=== PATIENT | female | born 1930 | race Caucasian/White ===

== ENCOUNTER → 2016-04-19 | Outpatient (CLI) | payer OTHER ==
[~2016-04-19] MED LIST: ASPEC81 PO; CLCC1250 PO; CLR10 PO; EFFSR75 PO; GLCSR500 PO; HYDC25 PO; LISI-461 PO; MULT-506 PO; PRLSR20 PO; SIMV40TA2 PO
--- NOTE | 2016-04-19 16:56 | MAMMOGRAPHY REPORT ---
BILATERAL DIGITAL SCREENING MAMMOGRAM TOMOSYNTHESIS WITH CAD: 04/19/2016 CLINICAL HISTORY: Asymptomatic. Personal history of breast cancer. TECHNIQUE: Breast tomosynthesis in addition to standard 2D mammography was performed. Current study was also evaluated with a Computer Aided Detection (CAD) system. COMPARISON: Comparison is made to exams dated: 04/15/2015 mammogram, 04/08/2013 mammogram, 04/14/2014 m ammogram, 05/26/2013 specimen, 04/23/2013 stereotactic biopsy, and 04/03/2012 mammogram - [facility]. BREAST COMPOSITION: There are scattered areas of fibroglandular density in both breasts. FINDINGS: There is expected architectural distortion and density in the upper outer far posterior ri ght breast, with a single surgical clip visualized, in the area of prior lumpectomy. There are mode rate vascular calcifications and a few stable benign-appearing microcalcifications in the breasts. No new suspicious mass, architectural distortion or cluster of suspicious microcalcifications is see n. IMPRESSION: ACR BI-RADS CATEGORY 1: NEGATIVE There is no mammographic evidence of malignancy. A 1 year screening mammogram is recommended. The p atient will receive written notification of the results. Approximately 10% of breast cancers are not detected with mammography. A negative mammographic repor t should not delay biopsy if a clinically suggestive mass is present. Viki Doe M.D. ay/:04/19/2016 15:06:36 Tank Builder And Erector: Lavinia ADAM(Rita)(M), [facility] letter sent: Normal 1/2 BI-RADS Code: ACR BI-RADS Category 1: Negative
== END | disposition home or self-care (01) ==
LOC: C.MAMM 14:17
PROVIDERS: ATTEND Internal Medicine
DX: Z12.31 Encounter for screening mammogram for malignant neoplasm of breast (principal); Z85.3 Personal history of malignant neoplasm of breast

== ENCOUNTER → 2016-08-18 | Outpatient (CLI) | payer OTHER ==
[~2016-08-18] MED LIST changes: +GLIP2.5T11 PO; +PLV75 PO
[2016-08-18 13:55] LABS: ESTIMATED AVERAGE GLUCOSE 166 mg/dl; HA1C FLAG Normal (Normal)
[2016-08-18 14:01] LABS: BLOOD UREA NITROGEN 23 mg/dl (7-18); BUN/CREATININE RATIO 31.5 (10-20); CARBON DIOXIDE 27 mmol/L (21-32); CHLORIDE 104 mmol/L (98-107); CHOLESTEROL 135 mg/dl (0-200); CREATININE 0.72 mg/dl (0.60-1.20); GLUCOSE 133 mg/dl (70-99); POTASSIUM 4.1 mmol/L (3.5-5.1); SODIUM 141 mmol/L (136-145)
[2016-08-18 14:06] LABS: CHOLESTEROL/HDL RATIO 2.4; HDL CHOLESTEROL 56 mg/dl; TRIGLYCERIDES 76 mg/dl (0-150); VERY LOW DENSITY LIPOPROT CALC 15 mg/dl
== END | disposition home or self-care (01) ==
LOC: C.LABSPEC 12:20
PROVIDERS: ATTEND Internal Medicine
DX: E11.9 Type 2 diabetes mellitus without complications (principal); I10 Essential (primary) hypertension; I25.10 Atherosclerotic heart disease of native coronary artery without angina pectoris

== ENCOUNTER → 2016-08-21 | Outpatient (CLI) | payer OTHER | END | disposition home or self-care (01) | LOC: C.LABSPEC 14:53 | PROVIDERS: ATTEND Internal Medicine | DX: E11.9 Type 2 diabetes mellitus without complications (principal) ==

== ENCOUNTER → 2016-09-18 | Outpatient (CLI) | payer OTHER | END | disposition home or self-care (01) | LOC: C.LABSPEC 15:04 | PROVIDERS: ATTEND Internal Medicine | DX: N39.0 Urinary tract infection, site not specified (principal) ==

== ENCOUNTER → 2016-12-21 | Outpatient (CLI) | payer OTHER ==
[~2016-12-21] MED LIST changes: -GLIP2.5T11 PO; -PLV75 PO
[2016-12-21 13:31] LABS: ESTIMATED AVERAGE GLUCOSE 163 mg/dl; HA1C FLAG Normal (Normal)
[2016-12-21 13:41] LABS: ALT/SGPT 50 U/L (12-78); AST/SGOT 37 U/L (15-37); BLOOD UREA NITROGEN 15 mg/dl (7-18); BUN/CREATININE RATIO 19.9 (10-20); CALCIUM 8.7 mg/dl (8.5-10.1); CARBON DIOXIDE 30 mmol/L (21-32); CHLORIDE 105 mmol/L (98-107); CREATININE 0.76 mg/dl (0.60-1.20); GLUCOSE 122 mg/dl (70-99); POTASSIUM 3.8 mmol/L (3.5-5.1); SODIUM 140 mmol/L (136-145)
[2016-12-21 13:43] LABS: ALB/GLOB RATIO 1.1 (0.9-2); ALKALINE PHOSPHATASE 66 U/L (45-117); CHOLESTEROL 140 mg/dl (0-200); CHOLESTEROL/HDL RATIO 2.8; HDL CHOLESTEROL 50 mg/dl; TRIGLYCERIDES 103 mg/dl (0-150); VERY LOW DENSITY LIPOPROT CALC 21 mg/dl
== END | disposition home or self-care (01) ==
LOC: C.LABSPEC 12:29
PROVIDERS: ATTEND Internal Medicine
DX: I10 Essential (primary) hypertension (principal); E11.65 Type 2 diabetes mellitus with hyperglycemia; E78.5 Hyperlipidemia, unspecified

== ENCOUNTER → 2017-02-27 | Outpatient (CLI) | payer OTHER ==
[2016-02-22 14:12] VITALS: BP 111/73; PULSE 90
[~2017-02-27] MED LIST changes: +GLIP2.5T11 PO; +PLV75 PO
[2017-02-27 14:02] VITALS: BP 129/76; PULSE 100; TEMP 36.7; O2SAT 95
--- NOTE | 2017-02-27 16:41 | Radiation Oncology Follow-Up ---
Radiation Oncology Follow-Up Date of Visit Feb 27, 2017. Reason For Visit Annual follow-up Radiation Completion Date 07/15/13 APB Diagnosis (1) Ductal carcinoma in situ of right breast Status: Resolved Onset Date: 05/26/2013 Stage: 0 Permanent Comment: Abnormal right breast mammogram Status post stereotactic biopsy positive for high-grade ductal carcinoma in situ Status post partial mastectomy, stage pTis status post completion of radiation therapy utilizing accelerated partial breast treatment completed 07/15/2013 received 3850 cGy Patient declined tamoxifen Last Edited By: Mariana Cervantes on Feb 22, 2016 16:06 Interim History She has noted no changes to her breasts are of this past year. She has noticed no masses or tenderness no change of the axilla. She's had no swelling of her arm. She is up-to-date on mammography. She had a mammogram 04/19/2016. There is no mammographic evidence of malignancy. A one-year screening mammogram was recommended. This was given a BI-RADS Category 1. 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 She had right arm and leg weakness. She underwent physical therapy for 2 months and has regained the strength in her upper and lower extremity. Allergies Coded Allergies: Sulfa Antibiotics (Unverified Allergy, Severe, SHORTNESS OF BREATH, ) " MAKES ME HYPER " Glipizide (Verified Allergy, Intermediate, DELIRIUM, 02/22/16) "had blood sugar spikes and was off balance " Home Medications Scheduled Aspirin Enteric Coated (Ecotrin Or Generic *), 81 MG PO DAILY Calcium Carbonate (Os-Paolo 500 *), 1,500 MG PO DAILY Clopidogrel Bisulfate (Clopidogrel), 1 TAB PO DAILY Glipizide (Glipizide Er), 1 TAB PO DAILY Hydrochlorothiazide (Hctz *), 12.5 MG PO QAM Lisinopril (Zestril), 10 MG PO QAM Loratadine (Claritin), 10 MG PO DAILY Metformin Hcl Ext Rel (Glucophage Ext Rel *), 500 MG PO BIDM Multivitamin (Multivitamin), 1 TABLET PO DAILY Omeprazole (Prilosec), 20 MG PO DAILY Simvastatin (Zocor), 40 MG PO QPM Venlafaxine Ext Rel (Effexor Extended Rel *), 75 MG PO DAILY Review of Systems Gastrointestinal: Symptoms: WNL GI Comments: has IBS Oral: Symptoms: No Problems Respiratory: Symptoms: WNL Urinary: Symptoms: WNL Comments: nocturia times 1 Skin: Symptoms: No Problems Breast: Right Upper Arm Measurement: 29.0 Right Mid Arm Measurement: 21.5 Right Wrist Measurement: 15.5 Left Upper Arm Measurement: 28.5 Left Mid Arm Measurement: 21.5 Left Wrist Measurement: 15.5 Arm Dominence: Right Patient Cosmetic Evaluation: Excellent Staff Cosmetic Evalaluation: Excellent Physical Exam Vital Signs Date Time Temp Pulse Resp B/P (MAP) Pulse Ox O2 Delivery O2 Flow Rate FiO2 02/27/17 14:02 36.7 100 16 129/76 95 Fatigue: None General Appearance: no apparent distress, + pertinent finding (mild facial droop with lid lag.) Eyes: normal inspection, EOMI ENT: normal ENT inspection, hearing grossly normal Neck: no adenopathy, thyroid normal Respiratory/Chest: lungs clear, no respiratory distress, no accessory muscle use Breast: Breast examination reveals well-healed incisions of the right breast. There are no masses or tenderness and no axillary adenopathy. There are fibrous changes in the upper inner quadrant of the breast. There are no distinct masses. There are no skin retractions or nipple changes. Using the Mckenzie score cosmesis she has a excellent outcome. The left breast showed no masses or tenderness and no axillary adenopathy. Cardiovascular: regular rate, rhythm, no gallop, no murmur Extremities: no pedal edema Neurologic/Psychiatric: alert, normal mood/affect Skin: warm/dry Pain Management Side: Bilateral Patient Preferred Pain Scale: 0 - 10 Pain Rating (0-10): 0 Laboratory Studies Test 12/21/16 08:45 Sodium Level 140 mmol/L (136-145) Potassium Level 3.8 mmol/L (3.5-5.1) Chloride Level 105 mmol/L (98-107) Carbon Dioxide Level 30 mmol/L (21-32) Anion Gap 5.0 mmol/L (3-11) Blood Urea Nitrogen 15 mg/dl (7-18) Creatinine 0.76 mg/dl (0.60-1.20) Estimated GFR () 82.3 Estimated GFR (Non- 71.0 BUN/Creatinine Ratio 19.9 (10-20) Random Glucose 122 mg/dl (70-99) Estimated Average Glucose 163 mg/dl Hemoglobin A1c 7.3 % (4.5-5.6) Calcium Level 8.7 mg/dl (8.5-10.1) Total Bilirubin 0.4 mg/dl (0.2-1) Aspartate Amino Transferase (AST) 37 U/L (15-37) Alanine Aminotransferase (ALT) 50 U/L (12-78) Alkaline Phosphatase 66 U/L (45-117) Total Protein 7.0 gm/dl (6.4-8.2) Albumin 3.7 gm/dl (3.4-5.0) Globulin 3.3 gm/dl (2.5-4.0) Albumin/Globulin Ratio 1.1 (0.9-2) Triglycerides Level 103 mg/dl (0-150) Cholesterol Level 140 mg/dl (0-200) HDL Cholesterol 50 mg/dl LDL Cholesterol Direct 81 mg/dl LDL Cholesterol, Calculated mg/dl VLDL Cholesterol, Calculated 21 mg/dl Cholesterol/HDL Ratio 2.8 Additional Studies Patient: HODA NGUYEN [facility] Rec: [id number] Address1: [address] Address2: [facility] ID: [id number] Date: 1930 Sex: F Ref Phy: Att Phy: Jacob Soler M.D. Raquel Phy: Jacob Soler M.D. Inter Phy: Viki Doe MD [facility] Zip: [place] [address] SC: [id number] Report #: [id number] Bacon De Rinder: JOSE Diagnosis: ASYMPTOMATICS Service Date: 04/19/16 MNE: [id number] Ordering Dr: Jacob Soler M.D. CC: Jacob Soler M.D. CONF: DICTATED BY: Viki Doe MD MAMMOGRAPHY REPORT BILATERAL DIGITAL SCREENING MAMMOGRAM TOMOSYNTHESIS WITH CAD: 04/19/2016 CLINICAL HISTORY: Asymptomatic. Personal history of breast cancer. TECHNIQUE: Breast tomosynthesis in addition to standard 2D mammography was performed. Current study was also evaluated with a Computer Aided Detection (CAD ) system. COMPARISON: Comparison is made to exams dated: 04/15/2015 mammogram, 04/08/2013 mammogram, 04/14/2014 mammogram, 05/26/2013 specimen, 04/23/2013 stereotactic biopsy, and 04/03/2012 mammogram - [facility]. BREAST COMPOSITION: There are scattered areas of fibroglandular density in both breasts. FINDINGS: There is expected architectural distortion and density in the upper outer far posterior right breast, with a single surgical clip visualized, in the area of prior lumpectomy. There are moderate vascular calcifications and a few stable benign-appearing microcalcifications in the breasts. No new suspicious mass, architectural distortion or cluster of suspicious microcalcifications is seen. IMPRESSION: ACR BI-RADS CATEGORY 1: NEGATIVE There is no mammographic evidence of malignancy. A 1 year screening mammogram is recommended. The patient will receive written notification of the results. Approximately 10% of breast cancers are not detected with mammography. A negative mammographic report should not delay biopsy if a clinically suggestive mass is present. Viki Doe M.D. ay/:04/19/2016 15:06:36 Recovery Analyst: Lavinia ADAM(Rita)(Jen), [facility] letter sent: Normal 04/03 BI-RADS Code: ACR BI-RADS Category 1: Negative Dictated by: Viki Doe MD Signed by: Viki Doe MD Assessment & Plan Plan: Continue scheduled mammography. Continue regular follow-up with her primary care physician and Dr. Funez. We discussed the area of fibrous tissue. This is a result of the accelerated partial breast treatment. She has no concerns and is pleased with her outcome. We asked her to return to our office in 1 year. She will call if she has any questions or concerns in the interim. Total Time In Follow-Up I spent 20 minutes speaking to the patient and performing examination. I spent 15 minutes reviewing information in completing this note. Copy To Jacob Soler M.D.; Mj Funez M.D.
== END | disposition home or self-care (01) ==
LOC: C.ONC 13:54
PROVIDERS: ATTEND Physician Assistant Medical
DX: Z08 Encounter for follow-up examination after completed treatment for malignant neoplasm (principal); Z92.3 Personal history of irradiation; Z85.3 Personal history of malignant neoplasm of breast

== ENCOUNTER → 2017-04-26 | Outpatient (CLI) | payer OTHER ==
--- NOTE | 2017-04-27 13:25 | MAMMOGRAPHY REPORT ---
BILATERAL DIGITAL SCREENING MAMMOGRAM TOMOSYNTHESIS WITH CAD: 04/26/2017 CLINICAL HISTORY: Asymptomatic. Personal history of breast cancer. TECHNIQUE: Breast tomosynthesis in addition to standard 2D mammography was performed. Current study was also evaluated with a Computer Aided Detection (CAD) system. COMPARISON: Comparison is made to exams dated: 04/19/2016 mammogram, 04/15/2015 mammogram, 10/12/2014 m ammogram, 04/14/2014 mammogram, 10/01/2013 mammogram, and 05/26/2013 specimen - [facility] ter. BREAST COMPOSITION: There are scattered areas of fibroglandular density in both breasts. FINDINGS: No suspicious masses, calcifications, or areas of architectural distortion are noted in ei ther breast. There has been no significant interval change compared to prior exams. There are stable postoperative changes in the right breast from prior lumpectomy. Scattered bilateral benign-appeari ng calcifications are again noted. A linear scar marker denotes a scar on the right superior breast. IMPRESSION: ACR BI-RADS CATEGORY 2: BENIGN There is no mammographic evidence of malignancy. A 1 year screening mammogram is recommended. The pa tient will receive written notification of the results. Approximately 10% of breast cancers are not detected with mammography. A negative mammographic report should not delay biopsy if a clinically suggestive mass is present. Lianet Holder M.D. /:04/26/2017 15:32:20 Huc: Ambreen DORSEY)(Jen), [facility] letter sent: Normal 1/2 BI-RADS Code: ACR BI-RADS Category 2: Benign
== END | disposition home or self-care (01) ==
LOC: C.MAMM 13:52
PROVIDERS: ATTEND Internal Medicine
DX: Z12.31 Encounter for screening mammogram for malignant neoplasm of breast (principal); Z85.3 Personal history of malignant neoplasm of breast

== ENCOUNTER → 2017-05-14 | Outpatient (CLI) | payer OTHER | END | disposition home or self-care (01) | LOC: C.LABSPEC 18:10 | PROVIDERS: ATTEND Internal Medicine | DX: N39.0 Urinary tract infection, site not specified (principal) ==

== ENCOUNTER → 2017-05-16 | Outpatient (CLI) | payer OTHER ==
[2017-05-16 13:08] LABS: HEMOGLOBIN A1C 7.4 % (4.5-5.6)
[2017-05-16 13:25] LABS: BLOOD UREA NITROGEN 21 mg/dl (7-18); CARBON DIOXIDE 28 mmol/L (21-32); CHOLESTEROL 136 mg/dl (0-200); CREATININE 0.91 mg/dl (0.60-1.20); GLUCOSE 148 mg/dl (70-99); POTASSIUM 3.8 mmol/L (3.5-5.1); SODIUM 136 mmol/L (136-145)
[2017-05-16 13:29] LABS: LDL CHOLESTEROL (DIRECT) 75 mg/dl
== END ==
LOC: C.LABSPEC 12:24
PROVIDERS: ATTEND Internal Medicine
DX: E11.65 Type 2 diabetes mellitus with hyperglycemia (principal); I10 Essential (primary) hypertension; E78.5 Hyperlipidemia, unspecified

== ENCOUNTER → 2017-06-20 | Outpatient (CLI) | payer OTHER ==
--- NOTE | 2017-06-20 12:34 | DIAGNOSTIC IMAGING REPORT ---
L WRIST MIN 3 VIEWS ROUTINE CLINICAL HISTORY: 87 years-old Female presenting with R/O FRACTURE. TECHNIQUE: Frontal, bilateral oblique, and lateral views of the left wrist were obtained. COMPARISON: None. FINDINGS: Osteopenia suspected. Prominent osteophytosis with joint space loss and subchondral sclerosis at the trapezium-first metacarpal articulation. No acute fracture or malalignment. Deformity of the fifth metacarpal suggests prior fracture. A violation is somewhat limited by suboptimal positioning. IMPRESSION: 1. No acute osseous injury allowing for osteopenia. 2. Degenerative changes of the first carpometacarpal articulation characteristic of osteoarthritis. 3. Posttraumatic deformity of the fifth metacarpal. Electronically signed by: Mike Castro M.D. 06/20/2017 12:32 PM Dictated Date/Time: 06/20/2017 12:31 PM
--- NOTE | 2017-06-20 18:35 | DIAGNOSTIC IMAGING REPORT ---
L HUMERUS MIN 2 VIEWS ROUTINE HISTORY: 87 years-old Female R/O FRACTURE acute left arm pain with concern for fracture COMPARISON: Left wrist radiographs of same day TECHNIQUE: 2 views of the left humerus FINDINGS: The bones appear mildly demineralized. Moderate glenohumeral and AC joint osteoarthritis. Degenerative changes about the elbow articulation also noted. No acute fracture or dislocation identified. Left lung base opacities are noted which may reflect atelectasis. No opaque foreign body. IMPRESSION: No acute fracture or dislocation. The above report was generated using voice recognition software. It may contain grammatical, syntax or spelling errors. Electronically signed by: Garrett Mullins M.D. 06/20/2017 6:33 PM Dictated Date/Time: 06/20/2017 6:32 PM
== END | disposition home or self-care (01) ==
LOC: C.RAD 11:27
PROVIDERS: ATTEND Internal Medicine
DX: M25.532 Pain in left wrist (principal)

== ENCOUNTER → 2017-07-23 | Outpatient (CLI) | payer OTHER | END | disposition home or self-care (01) | LOC: C.LABSPEC 17:23 | PROVIDERS: ATTEND Internal Medicine | DX: N39.0 Urinary tract infection, site not specified (principal) ==

== ENCOUNTER → 2017-08-09 | Outpatient (CLI) | payer OTHER | END | disposition home or self-care (01) | LOC: C.LABSPEC 16:35 | PROVIDERS: ATTEND Internal Medicine | DX: N39.0 Urinary tract infection, site not specified (principal) ==

== ENCOUNTER 2017-10-29 11:42 | Day surgery (SDC) | payer OTHER ==
[2017-10-11 11:18] VITALS: BMI 24.0
--- NOTE | 2017-10-15 13:16 | PAT Medication Instructions ---
Service Date Oct 15, 2017. Current Home Medication List Aspirin (Aspirin Ec), 81 MG PO HS Calcium Carbonate-Vitamin D (Oscal 500/200 D-3), 1 TAB PO QAM Cetirizine (Zyrtec), 10 MG PO QAM Clopidogrel Bisulfate (Clopidogrel), 1 TAB PO HS Glipizide (Glipizide Er), 12.5 MG PO QAM Glipizide (Glipizide Er), 5 MG PO QPM Hydrochlorothiazide (Hydrochlorothiazide), 1 TAB PO QAM Lisinopril (Zestril), 10 MG PO QAM Metformin Hcl (Glucophage), 500 MG PO BID Multivitamin (Multivitamin), 1 TABLET PO QAM Pantoprazole (Protonix), 40 MG PO QAM Simvastatin (Zocor), 40 MG PO QPM Venlafaxine Hcl (Venlafaxine Extended Rel), 75 MG PO QAM Medication Instructions For Your Scheduled Surgery - Check with surgeon and prescribing physician for instructions: Clopidogrel Bisulfate (Clopidogrel), 1 TAB PO HS Aspirin (Aspirin Ec), 81 MG PO HS - Hold the following medications the morning of surgery: Metformin Hcl (Glucophage), 500 MG PO BID Multivitamin (Multivitamin), 1 TABLET PO QAM Hydrochlorothiazide (Hydrochlorothiazide), 1 TAB PO QAM Lisinopril (Zestril), 10 MG PO QAM Glipizide (Glipizide Er), 12.5 MG PO QAM Calcium Carbonate-Vitamin D (Oscal 500/200 D-3), 1 TAB PO QAM Cetirizine (Zyrtec), 10 MG PO QAM - Take the following medications the morning of surgery with a sip of water: Pantoprazole (Protonix), 40 MG PO QAM Venlafaxine Hcl (Venlafaxine Extended Rel), 75 MG PO QAM - Take the following medications as scheduled the night before surgery: Simvastatin (Zocor), 40 MG PO QPM Metformin Hcl (Glucophage), 500 MG PO BID Glipizide (Glipizide Er), 5 MG PO QPM If you have any questions please call us at [phone] or [phone] or [phone]
[~2017-10-29] VITALS: Ht 154.9 cm; Wt 60.0 kg
[~2017-10-29 11:42] MED LIST changes: -ASPEC81 PO; +ASPI81TA28 PO; +CALC200T PO; +CETI10TA84 PO; +CIPROFLOXACIN / D5W 400 MG IV SCH; -CLCC1250 PO; -CLR10 PO; -EFFSR75 PO; +GLC/500 PO; -GLCSR500 PO; +GLIP-197 PO; -HYDC25 PO; +HYDR12.55 PO; +LACTATED RINGER'S 1000ML 1,000 ML IV SCH; +PANT40TA PO; -PRLSR20 PO; +VENL75CA73 PO
[2017-10-29 12:12] VITALS: BP 152/92; PULSE 78; TEMP 36.7; O2SAT 99; Ht 154.9 cm; Wt 60.0 kg
[2017-10-29] MEDS ORDERED: PROPOFOL IV EMULSION 10 MG/ML 20 ML VIAL ONE (12:18)
[2017-10-29] MEDS ORDERED: ONDANSETRON INJ 2 MG/ML 2 ML VIAL ONE (12:18)
[2017-10-29] MEDS ORDERED: FENTANYL CITRATE INJ 50 MCG/1 ML 2 ML VIAL ONE (12:18)
[2017-10-29] MEDS ORDERED: LIDOCAINE HCL 2% 2 ML VIAL (20MG/ML) ONE (12:18)
[2017-10-29] MEDS ORDERED: MIDAZOLAM HCL 1 MG/ML 2ML VIAL ONE (12:18)
--- NOTE | 2017-10-29 12:47 | History & Physical Bridge Note ---
H&P Re-Evaluation Bridge Note: I have examined the patient, reviewed the History & Physical and in the interval since the performance of the History & Physical I have noted the following changes of clinical significance: No changes noted
--- NOTE | 2017-10-29 12:49 | Discharge Instructions ---
Discharge Instructions Date of Service Oct 29, 2017. Admission Reason for Admission: Bladder Tumor Discharge Discharge Diagnosis / Problem: Hematuria. Bladder Lesion Discharge Goals Goal(s): Decrease discomfort, Improve function Activity Recommendations Activity Limitations: resume your previous activity Lifting Limitations: gradually increase as tolerated Exercise/Sports Limitations: gradually increase as tolerated . Instructions / Follow-Up Instructions / Follow-Up May have blood in urine. May have pelvic discomfort. Call if any fevers or chills. Current Hospital Diet Patient's current hospital diet: Discharge Diet Recommended Diet: Regular Diet Procedures Procedures Performed: Cystoscopy with biopsy and fulguration. Pending Studies Studies pending at discharge: no Laboratory Results Hemoglobin A1c Test 09/13/17 09:00 Range/Units Estimated Average Glucose 143 mg/dl Hemoglobin A1c 6.6 H 4.5-5.6 % Lipid Panel Test 09/13/17 09:00 Range/Units Triglycerides Level 114 0-150 mg/dl Cholesterol Level 131 0-200 mg/dl HDL Cholesterol 50 mg/dl LDL Cholesterol Direct 74 mg/dl Cholesterol/HDL Ratio 2.6 LDL Cholesterol, Calculated mg/dl Medical Emergencies . Who to Call and When: Medical Emergencies: If at any time you feel your situation is an emergency, please call 911 immediately. . Non-Emergent Contact Non-Emergency issues call your: Primary Care Provider, Urologist Call Non-Emergent contact if: you have a fever, temperature is above 101, temperature is above 101.5, your pain is not controlled, your pain is worsening . . "Provider Documentation" section prepared by Shukri Contreras. .
[2017-10-29] MEDS ORDERED: CIPR-255 PO (12:55)
[2017-10-29] MEDS ORDERED: PHEN-775 PO (12:55)
[2017-10-29] MEDS ORDERED: OXYC7.5T65 PO (12:55)
[2017-10-29] MEDS ORDERED: OXYCODONE/ACETAMINOPHEN 7.5-325 TAB PO PRN (13:00)
[2017-10-29] MEDS ORDERED: PHENYLEPHRINE 100MCG/ML 5ML SYR ONE (13:27)
[2017-10-29] MEDS ORDERED: EpHEDrine SULFATE 50MG/5ML SYR ONE (13:27)
--- NOTE | 2017-10-29 13:34 | [facility] Operative Report ---
Operative Report Operative Date Oct 29, 2017. Pre-Operative Diagnosis Hematuria. Bladder Lesion Post-Operative Diagnosis Same Procedure(s) Performed Cystoscopy with biopsy and fulguration. Surgeon Ben Estimated Blood Loss Minimal Findings Small papillary lesion on left near trigone. Specimens Biopsy bladder left wall Drains None Anesthesia Type MAC Complication(s) none Disposition Recovery Room / PACU Indications Bladder lesion with hematuria. Risks and benefits discussed at length. Description of Procedure Patient was consented and brought back to the operating room. Patient was placed under anesthesia in the supine position and moved to the dorsal lithotomy position. Patient was prepped and draped in the regular sterile fashion. A time out was completed. A 30degree Cystoscope was placed into the bladder and the entire bladder was examined. The UO's were identified. There were irritated papillary appearing lesions that were identified near the left trigone. The lesion and area of erythema were noted in relation to the UO. These were biopsied and sent for analysis. The areas were then fulgurated. The bladder was inspected a final time. The scope was removed after the bladder was emptied. The patient was cleaned, aroused from anesthesia, and transferred to the pacu in stable condition having tolerated the procedure well with no complications. I was present and participated in all aspects of the procedure. The patient will be monitored in the PACU until transferred. I attest to the content of the Intraoperative Record and any orders documented therein. Any exceptions are noted below.
--- NOTE | 2017-10-29 14:08 | Anesthesiology Progress Note ---
Anesthesia Post Op Note Date & Time Oct 29, 2017 at 14:08 Vital Signs Pain Intensity: 0 Vital Signs Past 12 Hours Date Time Temp Pulse Resp B/P (MAP) Pulse Ox O2 Delivery O2 Flow Rate FiO2 10/29/17 13:56 137/76 10/29/17 13:52 80 13 10/29/17 13:52 80 13 93 10/29/17 13:51 140/78 10/29/17 13:47 83 14 99 10/29/17 13:47 83 14 10/29/17 13:46 152/80 10/29/17 13:44 171/86 10/29/17 13:43 181/105 10/29/17 13:42 36.2 88 14 170/86 99 Oxymask 10 10/29/17 13:42 99 14 99 10/29/17 13:42 98 14 10/29/17 12:12 36.7 78 20 152/92 (112) 99 Room Air Notes Mental Status: alert / awake / arousable, participated in evaluation Pt Amnestic to Procedure: Yes Nausea / Vomiting: adequately controlled Pain: adequately controlled Airway Patency, RR, SpO2: stable & adequate BP & HR: stable & adequate Hydration State: stable & adequate Anesthetic Complications: no major complications apparent
[2017-10-29] MEDS ORDERED: ATROPINE SULFATE 0.1 MG/ML 5ML SYR IV PRN (14:15)
[2017-10-29] MEDS ORDERED: EpHEDrine SULFATE INJ 50 MG/ML AMP IV PRN (14:15)
[2017-10-29 14:19] VITALS: BP 138/70; PULSE 72; TEMP 36.5; O2SAT 94
[2017-10-29 14:45] VITALS: BP 142/67; PULSE 69; TEMP 36.2; O2SAT 96
== END 2017-10-29 15:07 | disposition home or self-care (01) ==
LOC: C.ACU 11:42
PROVIDERS: ATTEND Urology
DX: N32.89 Other specified disorders of bladder (principal); N81.6 Rectocele; E11.9 Type 2 diabetes mellitus without complications; E78.5 Hyperlipidemia, unspecified; E78.00 Pure hypercholesterolemia, unspecified; K21.9 Gastro-esophageal reflux disease without esophagitis; K44.9 Diaphragmatic hernia without obstruction or gangrene; I10 Essential (primary) hypertension; Z86.73 Personal history of transient ischemic attack (TIA), and cerebral infarction without residual deficits; Z79.82 Long term (current) use of aspirin; Z79.84 Long term (current) use of oral hypoglycemic drugs; Z88.2 Allergy status to sulfonamides

== ENCOUNTER → 2017-11-21 | Outpatient (CLI) | payer OTHER ==
[~2017-11-21] MED LIST changes: +CIPR-255 PO; -CIPROFLOXACIN / D5W 400 MG IV SCH; -LACTATED RINGER'S 1000ML 1,000 ML IV SCH; +OXYC7.5T65 PO
[2017-11-23 18:22] LABS: FECAL OCCULT BLOOD #1 NEGATIVE (NEGATIVE); FECAL OCCULT BLOOD #2 NEGATIVE (NEGATIVE); FECAL OCCULT BLOOD #3 NEGATIVE (NEGATIVE)
== END | disposition home or self-care (01) ==
LOC: C.LABSPEC 17:36
PROVIDERS: ATTEND Internal Medicine
DX: Z12.11 Encounter for screening for malignant neoplasm of colon (principal)